=== PATIENT | male | born 1980 | race Caucasian/White ===

== ENCOUNTER 2016-10-24 13:39 | Emergency (ER) | payer OTHER ==
[2016-10-24] MEDS ORDERED: NALOXONE HCL 1 MG/1 ML SYRG ONE ×3 (13:43→13:59)
[2016-10-24] MEDS ORDERED: NALOXONE HCL 1 MG/1 ML SYRG IV ONE ×4 (13:46→14:21)
[2016-10-24] MEDS ORDERED: LORazepam 2 MG/ML DISP.SYRIN ONE (13:50)
[2016-10-24] MEDS ORDERED: LORazepam 2 MG/ML DISP.SYRIN IV ONE ×2 (13:50→14:21)
[2016-10-24] MEDS ORDERED: NORMAL SALINE 1,000 ML IV PRN ×2 (14:12→14:14)
[2016-10-24 14:13] LABS: Hematocrit 47.8 % (42.0-52.0); Hemoglobin 15.2 gm/dL (13.5-18.0); Mean Cell Volume 103.9 fl (78-100); Mean Corpuscular Hgb Conc 31.8 g/dl (32-36); Platelet Count 390 K/mm3 (150-450); Red Cell Distribution Width 12.3 % (11.5-14.0); White Blood Count 17.5 K/mm3 (4.0-10.5)
[2016-10-24] MEDS ORDERED: ETOMIDATE 2 MG/ML VIAL IV ONE ×2 (14:14→14:30)
[2016-10-24 14:15] LABS: Total Cells Counted 100
[2016-10-24] MEDS ORDERED: SUCCINYLCHOLINE CHLORIDE 20 MG/ML VIAL IV ONE ×2 (14:15→14:30)
[2016-10-24 14:28] LABS: Atypical (Reactive) Lymph 4 % (0-2); Band 4 % (0-2.0); Immature Granulocyte 3 (0-1); Lymphocyte 49 % (20-51); Macrocytosis 2+; Monocyte 6 % (0-9); Neutrophil 34 % (42-75)
[2016-10-24 14:29] LABS: Platelet Estimate Normal (NORMAL)
[2016-10-24 14:34] LABS: ALT 26 U/L (19-67); AST 21 U/L (0-48); Albumin * 4.1 gm/dl (3.4-5.0); Alkaline Phosphatase * 82 U/L (50-170); BUN/Creatinine Ratio 7.4 (9.0-21.6); Bilirubin, Total 0.2 mg/dL (0.0-1.1); Blood Urea Nitrogen 9 mg/dL (6-23); Ca. Corrected For Albumin 8.9 mg/dL (8.4-10.2); Calcium * 9.3 mg/dL (7.9-10.9); Chloride 101 mmol/L (97-106); Glucose * 247 mg/dL (70-110); Potassium 4.5 mmol/L (3.4-4.6); Salicylate 6.3 mg/dL (2.8-20.0); Sodium 138 mmol/L (132-142); Total Protein 8.1 gm/dL (6.2-8.2); Valproic Acid 11.4 mcg/mL (50.0-100.0)
[2016-10-24 14:38] LABS: Anion Gap 35.1 mmol/L (6.8-13.8); Carbon Dioxide 6.4 mmol/L (24-32.6)
[2016-10-24 14:43] LABS: Urine Bilirubin Negative (NEGATIVE); Urine Blood 25 /ul (NEGATIVE); Urine Ketone Negative (NEGATIVE); Urine Nitrite Negative (NEGATIVE); Urine Protein 15 mg/dL (NEGATIVE); Urine Specific Gravity >=1.030 SP.GR. (1.005-1.030); Urine Urobilinogen Normal (NORMAL)
[2016-10-24] MEDS ORDERED: NORMAL SALINE 1,000 ML IV ONE (14:49)
[2016-10-24 14:51] LABS: Urine Appearance Clear; Urine Bacteria TRACE; Urine Color Pale Yellow; Urine RBC 0-5 /hpf (0-5); Urine WBC None Seen /hpf (0-5)
[2016-10-24] MEDS ORDERED: PROPOFOL VIAL IV ONE (14:59)
[2016-10-24] MEDS ORDERED: ROCURONIUM BROMIDE 10 MG/ML VIAL IV ONE (14:59)
--- OUTSIDE RECORDS SUMMARY | 2016-10-24 15:01 | XMS REPORT | Continuity of Care Document ---
:1980 Author Organization [facility] ([facility]) Address [address] [place] [address] Phone [phone] Care Team Providers Name Role Phone Cong Cuenca Primary Care Provider [phone] Source Comments This disclosure is being made pursuant to the Care Everywhere program, applicable federal and state laws, and may not contain all informaitonavailable regarding this patient.[facility] ([facility]) Active Allergies and Adverse Reactions Allergen Noted Date Severity Reactions Comments Levetiracetam 02/05/2015 OTHER Pt states his hand swelled up and kidneys shut down Current Medications Prescription Sig. Disp. Refills Start Date End Date Status divalproex (DEPAKOTE) take 1 Tab by mouth 2 60 Tab 0 04/08/2009 Active 500 mg EC tablet times daily. Indications: Epilepsy acetaminophen 325 mg Take 2 Tabs (650 mg 90 Tab 0 02/05/2015 Active tablet total) by mouth every 4 hours as needed Do not exceed 4000 mg acetaminophen per day from all sources diazepam 5 mg tablet Take 1 Tab (5 mg 30 Tab 0 02/05/2015 Active total) by mouth every 6 hours as needed docusate 100 mg Take 1 Cap (100 mg 60 Cap 0 02/05/2015 Active capsule total) by mouth 2 times daily as needed sennosides 8.6 mg Take 1-2 Tabs 60 Tab 0 02/05/2015 Active tablet (8.6-17.2 mg total) by mouth 2 times daily as needed oxyCODONE 5 mg Take 1-2 Tabs (5-10 60 Tab 0 02/05/2015 Active immediate release mg total) by mouth tablet every 4 hours as needed for Pain Active Problems Problem Noted Date S/P spinal fusion 02/04/2015 Neck pain 02/04/2015 Failed hardware 02/04/2015 Overview: Follow up in clinic. 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, without mention of intractable epilepsy Closed fracture of cervical vertebra, unspecified level without mention of spinal cord injury Cervicalgia 11/23/2006 Other postprocedural status(V45.89) 06/22/2005 Most Recent Encounters Date Type Specialty Providers Description 10/24/2016 Hospital Encounter Patient Services Stas Sapp MD Social History Tobacco Use Types Packs/Day Years Used Date Current Every Day Smoker Cigarettes 2 Tobacco Cessation:Counseling Given: Yes Comments: Alcohol Use Drinks/Week oz/Week Comments Yes Last Filed Vital Signs Vital Sign Reading Time Taken Blood Pressure 111/60 02/05/2015 11:55 AM CDT Pulse 68 02/05/2015 11:55 AM CDT Temperature 36.2 C (97.2 F) 02/05/2015 11:55 AM CDT Respiratory Rate 16 02/05/2015 11:55 AM CDT Height 1.778 m (5' 10") 02/05/2015 4:44 AM CDT Weight 73.2 kg (161 lb 6 oz) 02/05/2015 4:44 AM CDT Body Mass Index 23.16 02/05/2015 4:44 AM CDT Oxygen Saturation 98% 02/05/2015 11:55 AM CDT Plan of Care Health Maintenance Due Date Last Done Comments Hepatitis B Vaccine (1 of 3 - Primary Series) 1980 Tdap Vaccine 1992 Lipid Disorder Screening 12/21/1999 MMR Vaccine 12/21/1999 Td Vaccine 12/21/1999 Varicella Vaccine (1 of 2 - Adult - No Evidence of 12/21/1999 Immunity) Pneumococcal Vaccine (1 of 1 - PPSV23) 2000 Influenza Vaccine: Seasonal (#1) 01/31/2016 Results from Last 3 Months Not on file
--- NOTE | 2016-10-24 15:03 | ERNOTE ---
Neuro HPI ER Record Date of Service: 10/24/16 Presenting Symptoms: other - seizure Time Seen by Provider: 10/24/16 14:20 Source: EMS Exam Limitations: clinical condition Immunizations: IMMUNIZATION HX Immunizations Up to Date Yes History of Influenza Vaccine No Hx Pneumococcal Vaccination No Allergies/Adverse Reactions: Allergies Allergy/AdvReac Type Severity Reaction Status Date / Time levetiracetam [From [facility]] Allergy Intermediate anaphylacti Verified 11/03/15 13:13 c Home Medications: HOME MEDICATIONS Divalproex Sodium [Depakote] 500 mg PO DAILY #30 tablet. 07/04/15 [Last Taken Unknown] Phenytoin Sodium Extended [Dilantin] 400 mg PO DAILY #120 capsule 07/04/15 [ Last Taken Unknown] ALPRAZolam [Xanax] 0.5 mg PO BID PRN 11/03/15 [Last Taken Unknown] Cyclobenzaprine HCl [Flexeril] 10 mg PO TID PRN #30 tab 11/03/15 [Last Taken Unknown] HYDROcodone/ACETAMINOPHEN [Goodman 5-325] 1 tab PO Q4H PRN #20 tab 11/03/15 [Last Taken Unknown] - History of Present Illness Narrative: EMS brought patient to the ED for Seizure. By report EMS relates he did not take his seizure medications last night. This AM seizure. Not sure how long it had lasted but he was noted to have GM Seizure by EMS on arrival. 5mg nasal versed given. He appeared to stop seizing but then began again. On arrival no active seizure activity. He is not responding. Nursing noted to me that they have seen him for OD in the past as well so Narcan given. Patient arrives without IV. Otherwise history unavailable. Review of Systems - Narrative Narrative: ROS unobtainable d/t patient condition. - Patient's Past Medical History Patient History - Medical: Seizures Patient History - Cardiac/Respiratory: No pertinent hx Patient History - Cancer: No Hx of Cancer Patient History - Surgical Procedures: Other Patient History - Other: None - Family History Mother Family History - Medical: History Unknown Father Family History - Medical: No pertinent hx, History Unknown - Social History Living Situations: home Psych History: No pertinent hx Alcohol Use: none Drug Use: marijuana, other - Immunizations Immunizations Up to Date: Yes Hx Pneumococcal Vaccination: No History of Influenza Vaccine: No Physical Exam - Physical Exam General Appearance: Present: other - Breathing on his own, not responding, minimal gag reflex. Pupils pinpoint. Eye Exam: Normal inspection: bilateral Ears, Nose, Throat: Present: other - No oral FB Neck: Present: other - trachea midline Respiratory: Present: other - lungs clear, tachypnea Cardiovascular/Chest: Present: tachycardia Gastrointestinal/Abdominal: Present: nondistended, soft, no organomegaly Extremity Exam: Present: other - no deformity Neurological Exam: Present: other - unable. No active seizure activity at this time. Skin Exam: Absent: skin rash ED Progress - Results and Orders Patient's Lab Results:: I have reviewed the patient's lab results. - Vital Signs Patient's Vital Signs:: I have reviewed the patient's vital signs. Vital Signs: Vital Signs 10/24/16 13:40 Temperature 36.9 C Pulse Rate 134 H Respiratory 22 H Rate Blood Pressure 188/108 O2 Sat by Pulse 92 Oximetry - Progress/Reassessment Chief Complaint: Seizure Activity Progress Note-Subjective: 10/24/16 15:09 Initially patient had pinpoint pupils with no active Sz activity. a total of 4mg Narcan given with minimal response. Accucheck done on arrival. He did begin to arouse somewhat but GCS still less than 8. Difficulty with IV access noted. I attempted intubation X1 as anesthesia not in the facility. Succ and etomidate used. This was unsuccessful X1 attempt. patient bagged. [facility] arrived at that time and they attempted intubation X1 while I arranged transfer. The intubation attempt was unsuccessful as well. Anesthesia did arrive thereafter to intubate. Patient was bagged throughout intubation attempts. I spent greater than 30 minutes ion the direct care of this critically ill patient. Critical care time 30 min. I spoke with [facility] Dr Gutierrez who accepted transfer via air ambulance. Status Epilepticus likely Dx rather than OD. Some labs still pending at time of transfer. Departure Clinical Impression: Status epilepticus - Departure Disposition: [facility] Condition: Critical
[2016-10-24 15:06] LABS: Cocaine Ur Negative (NEGATIVE); Urine Barbiturate Negative (NEGATIVE); Urine Opiates Negative (NEGATIVE); Urine PCP Negative (NEGATIVE)
[2016-10-24 15:07] LABS: Urine Benzodiazepines Positive (NEGATIVE); Urine THC Positive (NEGATIVE)
--- NOTE | 2016-10-24 15:11 | OR ---
Anesthesia Procedure Note - Anesthesia Procedure Note Narrative: Vital Signs - Last Taken Temp 36.9 C 10/24/16 13:40 Pulse 134 H 10/24/16 13:40 Resp 22 H 10/24/16 13:40 BP 188/108 10/24/16 13:40 Pulse Ox 92 10/24/16 13:40 O2 Oxygen Delivery Method Non-Rebreather 10/24/16 15:07 ANESTHESIA PROCEDURE NOTE Date of procedure: 10/24/2016. Time of procedure: 1450. Performed by: Ish Curry CRNA Banquet Coordinator: None . Preprocedure diagnosis: Seizures. Respiratory distress. Unconsciousness. Post procedure diagnosis: Same. Procedure: Endotracheal intubation Indications: Establishment of airway for transport. Findings: Patient given 100 mg of propofol and 50 mg of Zemuron IV push. Intubated with a #8 [place] endotracheal tube using a glide scope with a number four cover. Breath sounds equal bilaterally. Positive end-tidal CO2. Endotracheal tube taped at 24 cm at the upper lip. EBL: Minimal. Fluids: N/A. Specimen: N/A. Post procedure condition: The patient tolerated the procedure well. No complications were noted. Thank you for this consultation Ish Curry CRNA
--- NOTE | 2016-10-24 15:41 | PATHPSR ---
PHYSICIAN: Brooks Potter MD LAB#: [id number] SPECIMEN DATE: 10/24/2016 CLINICAL INFORMATION: The patient is a 34-year-old man with a history of chronic pain and seizure disorder. Patient presented to the emergency room today with pinpoint pupils and no active seizure activity. Patient did not respond to Narcan. The clinical diagnosis of status epilepticus was entertained. Patient was intubated at our facility by anesthesia and transferred to [facility] via Air Ambulance. CBC: WBC 17.5 K/mm3, hemoglobin 15.2 gm/dl, hematocrit 47.8 %, MCV is 103.9 fl, MCH is 33 pg, MCHC is 31.8 g/dl, Platelet count 390,000. Manual differential: Neutrophils 34 %, bands 4 %, lymphocytes 49 %, monocytes 6 %, eosinophils 0 %, basophils 0 %, atypical reactive lymphocytes 4, immature granulocytes 3 %. RED BLOOD CELLS: No abnormalities PLATELETS: No abnormalities WHITE BLOOD CELLS: Leukemoid Reaction with Left Shift of granulocytic series DIAGNOSIS: PERIPHERAL BLOOD SMEAR, REVIEW BY PATHOLOGIST: -LEUKEMOID REACTION WITH LEFT SHIFT OF THE GRANULOCYTIC SERIES COMMENT: In view of the clinical findings of status epilepticus the WBC findings are likely reactive. The CBC should be repeated following treatment of acute disorder. If a left shift of the granulocytic series persists after the acute condition resolves consideration of a myeloproliferative disorder should be entertained. The findings are communicated to [facility], Dr[facility]rez[facility]
[2016-10-24 22:06] VITALS: BP 167/139
== END 2016-10-24 15:02 | disposition short-term general hospital (02) ==
LOC: ER 13:39
PROC: 0BH17EZ Insertion of Endotracheal Airway into Trachea, Via Natural or Artificial Opening (ICD-10-PCS; principal; 2016-10-24)
DX: G40.901 Epilepsy, unspecified, not intractable, with status epilepticus (principal)
CPT/HCPCS: 31500; 36415; 80053; 80164; 80307; 81001; 83605; 85025; 85045; 87086; 88108; 96374; 96375; 99291; G0480